=== PATIENT | female | born 1980 | race Caucasian/White ===

== ENCOUNTER → 2018-10-02 | Outpatient (CLI) | payer BC ==
--- NOTE | 2018-10-02 14:46 | US ---
EXAMINATION TYPE: US gallbladder DATE OF EXAM: 10/02/2018 COMPARISON: NONE CLINICAL HISTORY: R10.10 upper Abd pain. Pt states on/off ABD pain and pressure that has gotten worse in the last 2 months EXAM MEASUREMENTS: Liver Length: 14.2 cm Gallbladder Wall: 0.2 cm CBD: 0.3 cm Right Kidney: 6.6 x 3.1 x 3.3 cm Pancreas: Obscured by bowel gas Liver: wnl Gallbladder: Anterior wall at fundus shows possible adenomyomatosis Evidence for sonographic Bucio's sign: No CBD: wnl Right Kidney: Atrophic, pt has renal transplant IMPRESSION: 1. 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 Otherwise unremarkable study. 2. Atrophic right kidney.
== END | disposition home or self-care (01) ==
LOC: RADUSWWP 13:59
PROVIDERS: ATTEND Internal Medicine Gastroenterology
DX: N26.1 Atrophy of kidney (terminal) (principal)
CPT/HCPCS: 76705

== ENCOUNTER 2019-04-13 14:31 | Emergency (ER) | payer BC ==
[2019-04-13 15:13] VITALS: RESP 16; TEMP 98.5
[2019-04-13 16:11] LABS: Basophils % (A) 0 %; Eosinophils # (A) 0.1 k/uL (0-0.7); Eosinophils % (A) 1 %; HCT 38.5 % (34.0-46.0); HGB 12.5 gm/dL (11.4-16.0); Lymphocytes # (A) 1.3 k/uL (1.0-4.8); Lymphocytes % (A) 16 %; MCH 27.5 pg (25.0-35.0); MCHC 32.6 g/dL (31.0-37.0); MCV 84.5 fL (80.0-100.0); Mean Platelet Volume 8.2; Monocytes # (A) 0.5 k/uL (0-1.0); Monocytes % (A) 6 %; Neutrophils # (A) 5.8 k/uL (1.3-7.7); Neutrophils % (A) 75 %; Platelet Count 183 k/uL (150-450); RBC 4.55 m/uL (3.80-5.40); RDW 13.3 % (11.5-15.5); WBC 7.7 k/uL (3.8-10.6)
[2019-04-13 16:17] LABS: Appearance,Urine Cloudy (Clear); Bilirubin,Urine Negative (Negative); Blood,Urine Large (Negative); Color,Urine Yellow; Glucose,Urine (UA) Negative (Negative); Ketones,Urine 1+ (Negative); Leukocyte Esterase,Urine Small (Negative); Mucus,Urine Rare /hpf; Nitrite,Urine Negative (Negative); Protein,Urine 2+ (Negative); RBC,Urine >182 /hpf (0-5); Specific Gravity,Urine 1.017 (1.001-1.035); Squamous Epithelial Cell,Urine 2 /hpf (0-4); Urobilinogen,Urine <2.0 mg/dL (<2.0); WBC,Urine 10 /hpf (0-5)
[2019-04-13 16:22] LABS: Albumin 4.3 g/dL (3.5-5.0); Calcium 9.2 mg/dL (8.4-10.2); Total Bilirubin 0.5 mg/dL (0.2-1.3); Total Protein 7.4 g/dL (6.3-8.2)
[2019-04-13 17:55] LABS: Amorphous Sediment,Urine Occasional /hpf; Appearance,Urine Clear (Clear); Bilirubin,Urine Negative (Negative); Blood,Urine Trace (Negative); Color,Urine Yellow; Glucose,Urine (UA) Negative (Negative); Ketones,Urine 1+ (Negative); Leukocyte Esterase,Urine Negative (Negative); Mucus,Urine Rare /hpf; Nitrite,Urine Negative (Negative); Protein,Urine 2+ (Negative); Specific Gravity,Urine 1.019 (1.001-1.035); Squamous Epithelial Cell,Urine <1 /hpf (0-4); Urobilinogen,Urine <2.0 mg/dL (<2.0)
--- NOTE | 2019-04-13 18:52 | US ---
EXAMINATION TYPE: US kidneys/renal and bladder DATE OF EXAM: 04/13/2019 COMPARISON: US 2018 CLINICAL HISTORY: US transplanted kidney. Right flank pain, N/V, patient has transplant kidney. EXAM MEASUREMENTS: Right Kidney: 6.5 x 3.6 x 3.4 cm Left Kidney: 7.1 x 3.6 x 3.3 cm Transplant Kidney: 11.2 x 4.3 x 5.9cm Right Kidney: atrophic Left Kidney: atrophic Transplant Kidney: right pelvis, no hydronephrosis or masses seen Bladder: wnl Bilateral Jets seen: no IMPRESSION: Negative kidneys are atrophic. No evidence of renal obstruction. Transplant kidney unremarkable.
[2019-04-13] MEDS ORDERED: ACETAMINOPHEN TAB 325 MG TAB PO STA (19:07)
--- NOTE | 2019-04-13 19:31 | ED ---
Female Urogenital HPI - General Chief complaint: Urogenital Stated complaint: Female Time Seen by Provider: 04/13/19 15:14 Source: patient Mode of arrival: ambulatory Limitations: no limitations - History of Present Illness Initial comments: 39-year-old female with history of kidney transplant 3.5 years ago on tacrolimus and CellCept, hypertension on metoprolol ER presenting for chief complaint of vaginal bleeding. Patient states she is history of dysfunctional uterine bleeding. She states she has had previous ablations and D&Cs. She states that since her transplant she has had increased vaginal bleeding or post to prior she did not have periods. Patient states that her bleeding has been heavy for the past 2-3 days. Patient was concerned because she's needed a transfusion in the past due to heavy vaginal bleeding. Patient states she has mild low back pain and cramping in the mid abdominal region. Patient denies dysuria urgency frequ ency. Patient denies any chest pain shortness of breath. Patient states she did have one episode of vomiting. She is not sure if this is associated. Remaining review of systems negative, Patient denies any recent fever, chills, shortness of breath, chest pain, numbness or tingling, constipation or diarrhea, headaches or visual changes, or any other complaints. Last Menstrual Period: 04/11/19 - Related Data Allergies Allergy/AdvReac Type Severity Reaction Status Date / Time morphine AdvReac Vomiting Verified 04/13/19 15:13 Review of Systems ROS Statement: Those systems with pertinent positive or pertinent negative responses have been documented in the HPI. ROS Other: All systems not noted in ROS Statement are negative. Past Medical History Past Medical History: Deep Vein Thrombosis (DVT), Hypertension (on Metoprolol ER BID) Additional Past Medical History / Comment(s): kidney disease History of Any Multi-Drug Resistant Organisms: None Reported Additional Past Surgical History / Comment(s): kidney transplant, urter reimplantation Past Psychological History: No Psychological Hx Reported Smoking Status: Never smoker Past Alcohol Use History: None Reported Past Drug Use History: None Reported General Exam - General Exam Comments Initial Comments: General: The patient is awake and alert, in no distress, and does not appear acutely ill. Eye: +3 mm pupils are equal, round and reactive to light, extra-ocular movements are intact. No nystagmus. There is normal conjunctiva bilaterally. No signs of icterus. Ears, nose, mouth and throat: There are moist mucous membranes and no oral lesions. Neck: The neck is supple, there is no tenderness or JVD. Cardiovascular: There is a regular rate and rhythm. No murmur, rub or gallop is appreciated. Respiratory: Lungs are clear to auscultation, respirations are non-labored, breath sounds are equal. No wheezes, stridor, rales, or rhonchi. Gastrointestinal: Soft, non-distended, non-tender abdomen without masses or organomegaly noted. There is no rebound or guarding present. No CVA tenderness. Bowel sounds are unremarkable. Pelvic: Pain goal rugated vaginal mucosa. Small amount of dark red blood in vaginal vault. No heavy active bleeding. No adnexal or cervical motion tendernesson bimanual examination. No external or internal lesions. Musculoskeletal: Normal ROM, no tenderness. Strength 5/5. Sensation intact. Radial pulses equal bilaterally 2+. Neurological: A&O x 3. CN II-XII intact, There are no obvious motor or sensory deficits. Coordination appears grossly intact. Speech is normal. Skin: Skin is warm and dry and no rashes or lesions are noted. Psychiatric: Cooperative, appropriate mood & affect, normal judgment. Limitations: no limitations Course Vital Signs 04/13/19 04/13/19 04/13/19 15:10 19:15 19:39 Temperature 98.5 F Pulse Rate 100 74 Respiratory 16 16 Rate Blood Pressure 133/89 151/100 152/98 O2 Sat by Pulse 99 98 Oximetry 04/13/19 20:21 Temperature Pulse Rate 78 Respiratory 16 Rate Blood Pressure 152/98 O2 Sat by Pulse Oximetry Medical Decision Making - Medical Decision Making Well-appearing 39-year-old female presenting for heavy vaginal bleeding. There is small amount of blood in the vaginal vault on examination. No evidence of large clots or heavy bleeding. Patient has no adnexal or cervical motion tenderness. Hemoglobin stable. Heart rate WNL, no evidence of compensation, no pallor of mucous membranes patient denies SOB, or palpitations/heart racing. Patient isin pain on abdominal examination. Urinalysis was contaminated with vaginal blood. Straight catheterization was performed given patient's transpl ant status. No evidence of infection. Patient states her creatinine baseline is between 1.1-1.2. She states that she always has protein in her urine. No previous laboratory studies for comparison. US of the kidney transplant reveals no abnormalities. I discussed case at length in detail with Dr. Hill including PMH and recent transplant. He reviewed imaging studies and labs. At this time we feel comfortable discharging patient with repeat hemoglobin with primary care provider and follow up with the patient's RUBBER WASHER. Patient is agreeable care plan as well as discharge. She states that she follows up with her automotive project engineer closely and has standing order for any lab she needs--stating she will obtain repeat tomorrow. Return parameters were discussed at length patient verbalizes understanding. Patient blood pressure elevated upon discharge she states she'll take her metoprolol when she gets home. - Lab Data Result diagrams: 04/13/19 16:01 04/13/19 16:01 Lab Results 04/13/19 04/13/19 04/13/19 Range/Units 15:56 15:56 16:01 WBC 7.7 (3.8-10.6) k/uL RBC 4.55 (3.80-5.40) m/uL Hgb 12.5 (11.4-16.0) gm/dL Hct 38.5 (34.0-46.0) % MCV 84.5 (80.0-100.0) fL MCH 27.5 (25.0-35.0) pg MCHC 32.6 (31.0-37.0) g/dL RDW 13.3 (11.5-15.5) % Plt Count 183 (150-450) k/uL Neutrophils % 75 % Lymphocytes % 16 % Monocytes % 6 % Eosinophils % 1 % Basophils % 0 % Neutrophils # 5.8 (1.3-7.7) k/uL Lymphocytes # 1.3 (1.0-4.8) k/uL Monocytes # 0.5 (0-1.0) k/uL Eosinophils # 0.1 (0-0.7) k/uL Basophils # 0.0 (0-0.2) k/uL Sodium (137-145) mmol/L Potassium (3.5-5.1) mmol/L Chloride (98-107) mmol/L Carbon Dioxide (22-30) mmol/L Anion Gap mmol/L BUN (7-17) mg/dL Creatinine (0.52-1.04) mg/dL Est GFR (CKD-EPI)AfAm (>60 ml/min/1.73 sqM) Est GFR (CKD-EPI)NonAf (>60 ml/min/1.73 sqM) Glucose (74-99) mg/dL Calcium (8.4-10.2) mg/dL Total Bilirubin (0.2-1.3) mg/dL AST (14-36) U/L ALT (9-52) U/L Alkaline Phosphatase (38-126) U/L Total Protein (6.3-8.2) g/dL Albumin (3.5-5.0) g/dL Urine Color Yellow Urine Appearance Cloudy H (Clear) Urine pH 6.0 (5.0-8.0) Ur Specific [place] 1.017 (1.001-1.035) Urine Protein 2+ H (Negative) Urine Glucose (UA) Negative (Negative) Urine Ketones 1+ H (Negative) Urine Blood Large H (Negative) Urine Nitrite Negative (Negative) Urine Bilirubin Negative (Negative) Urine Urobilinogen <2.0 (<2.0) mg/dL Ur Leukocyte Esterase Small H (Negative) Urine RBC >182 H (0-5) /hpf Urine WBC 10 H (0-5) /hpf Ur Squamous Epith Cells 2 (0-4) /hpf Amorphous Sediment (None) /hpf Urine Mucus Rare H (None) /hpf Urine HCG, Qual Not Detected (Not Detectd) 04/13/19 04/13/19 Range/Units 16:01 17:30 WBC (3.8-10.6) k/uL RBC (3.80-5.40) m/uL Hgb (11.4-16.0) gm/dL Hct (34.0-46.0) % MCV (80.0-100.0) fL MCH (25.0-35.0) pg MCHC (31.0-37.0) g/dL RDW (11.5-15.5) % Plt Count (150-450) k/uL Neutrophils % % Lymphocytes % % Monocytes % % Eosinophils % % Basophils % % Neutrophils # (1.3-7.7) k/uL Lymphocytes # (1.0-4.8) k/uL Monocytes # (0-1.0) k/uL Eosinophils # (0-0.7) k/uL Basophils # (0-0.2) k/uL Sodium 140 (137-145) mmol/L Potassium 4.0 (3.5-5.1) mmol/L Chloride 108 H (98-107) mmol/L Carbon Dioxide 23 (22-30) mmol/L Anion Gap 9 mmol/L BUN 16 (7-17) mg/dL Creatinine 1.20 H (0.52-1.04) mg/dL Est GFR (CKD-EPI)AfAm 66 (>60 ml/min/1.73 sqM) Est GFR (CKD-EPI)NonAf 58 (>60 ml/min/1.73 sqM) Glucose 112 H (74-99) mg/dL Calcium 9.2 (8.4-10.2) mg/dL Total Bilirubin 0.5 (0.2-1.3) mg/dL AST 19 (14-36) U/L ALT 16 (9-52) U/L Alkaline Phosphatase 72 (38-126) U/L Total Protein 7.4 (6.3-8.2) g/dL Albumin 4.3 (3.5-5.0) g/dL Urine Color Yellow Urine Appearance Clear (Clear) Urine pH 6.0 (5.0-8.0) Ur Specific [place] 1.019 (1.001-1.035) Urine Protein 2+ H (Negative) Urine Glucose (UA) Negative (Negative) Urine Ketones 1+ H (Negative) Urine Blood Trace H (Negative) Urine Nitrite Negative (Negative) Urine Bilirubin Negative (Negative) Urine Urobilinogen <2.0 (<2.0) mg/dL Ur Leukocyte Esterase Negative (Negative) Urine RBC (0-5) /hpf Urine WBC 3 (0-5) /hpf Ur Squamous Epith Cells <1 (0-4) /hpf Amorphous Sediment Occasional H (None) /hpf Urine Mucus Rare H (None) /hpf Urine HCG, Qual (Not Detectd) Disposition Clinical Impression: Vaginal bleeding, Bilateral lower abdominal cramping Disposition: HOME SELF-CARE Condition: Good Instructions (If sedation given, give patient instructions): Dysfunctional Uterine Bleeding (ED) Additional Instructions: Please use medication as discussed. Please follow-up with family doctor in the next 2 days, automotive project engineer and OBGYN. Please return to emergency room if the symptoms increase or worsen or for any other concerns. Is patient prescribed a controlled substance at d/c from ED?: No Referrals: Jesus Godinez MD [Primary Care Provider] - 1-2 days Time of Disposition: 19:31
[2019-04-13 19:40] VITALS: BP 152/98
[2019-04-13 20:21] VITALS: PULSE 78
== END 2019-04-13 20:22 | disposition home or self-care (01) ==
LOC: EC 14:31
DX: N93.9 Abnormal uterine and vaginal bleeding, unspecified (principal); R10.31 Right lower quadrant pain; R10.32 Left lower quadrant pain; M54.5 Low back pain; R11.10 Vomiting, unspecified; Z94.0 Kidney transplant status; Z96.0 Presence of urogenital implants; Z88.5 Allergy status to narcotic agent
CPT/HCPCS: 36415; 76770; 80053; 81001; 81025; 85025; 99284

== ENCOUNTER → 2020-09-17 | Outpatient (CLI) | payer BC ==
--- NOTE | 2020-09-17 13:56 | XR ---
EXAMINATION TYPE: XR chest 2V DATE OF EXAM: 09/17/2020 COMPARISON: NONE TECHNIQUE: PA and lateral views submitted. HISTORY: Pain FINDINGS: The lungs are clear and there is no pneumothorax, pleural effusion, or focal pneumonia. Heart size normal. No overt failure. IMPRESSION: 1. No acute process.
--- NOTE | 2020-09-17 18:36 | BD ---
EXAMINATION TYPE: Axial Bone Density DATE OF EXAM: 09/17/2020 COMPARISON: NONE CLINICAL HISTORY: 40 YR OLD FEMALE.....ICD-10 CODE: N18.3 CHRONIC KIDNEY DISEASE, N92.6 IRREG. M ENSTRUATION, R07.81 PLEURODYNIA, Height: 61 Weight: 185 FRAX RISK QUESTIONS: NOTHING TO NOTE HERE RISK FACTORS HISTORY OF: Postmenopausal woman: NO, IRREG. LMP NOW If Premenopausal, do you have irregular periods: YES Poor Health: RENAL TRANSPLANT PT, Hyperparathyroidism: NO Adrenal Insufficiency: NO MEDICATIONS: Additional Medications: MYFORTIC, PROGRAPH, (ANTI-REJECT MEDS), BP MEDS, REFLUX MEDS, VIT D, FOLIC AC ID, TYLENOL, AND PM Additional History: KIDNEY DISEASE STAGE 3, TRANSPLANT PATIENT, PLEURODYNIA, IRREG. CYCLES, EXAM MEASUREMENTS: Bone mineral densitometry was performed using the [employer] System. Bone mineral density as measured about the Lumbar spine is: ----- L1-L4(G/cm2): 1.564 T Score Values are as follows: ----- L1: 2.9 ----- L2: 3.1 ----- L3: 3.8 ----- L4: 2.9 ----- L1-L4: 3.2 Bone mineral density FIRST BONE DENSITY STUDY Bone mineral density about the R hip (g/cm2): 1.227 Bone mineral density about the L hip (g/cm2): 1.209 T Score values are as follows: -----R Neck: 0.9 -----L Neck: 0.6 -----R Total: 1.7 -----L Total: 1.6 Bone mineral density BASELINE STUDY FRAX%s: NO FRAX DONE AGE NOT WITHIN FRAX RANGE IMPRESSION: Due to patient's age, Z score values are utilized. Normal (Values between +1 and -1 indicate normal bone mass). Consider repeating this study in 5 year s or sooner if there is some new clinical indication. NOTE: T-SCORE=SD OF THE YOUNG ADULT MEAN.
== END | disposition home or self-care (01) ==
LOC: RADBDWWP 13:06
PROVIDERS: ATTEND Pediatrics
DX: N92.6 Irregular menstruation, unspecified (principal); R07.81 Pleurodynia; N18.30 Chronic kidney disease, stage 3 unspecified
CPT/HCPCS: 71046; 77080

== ENCOUNTER → 2020-10-28 | Outpatient (CLI) | payer BC ==
--- NOTE | 2020-11-02 10:10 | MM ---
Reason for exam: screening (asymptomatic). History: Patient is nulliparous. Took hormonal contraceptives beginning at age 17. Physical Findings: A clinical breast exam by your physician is recommended on an annual basis and results should be correlated with mammographic findings. MG 3D Screening Mammo W/Cad Bilateral CC and MLO view(s) were taken. The breast tissue is heterogeneously dense. This may lower the sensitivity of mammography. A couple asymmetric densities central left MLO view have no clear correlate on CC view and incompletely disperse on 3D images. This may represent superior imposition shadow but further evaluation is recommended. ASSESSMENT: Incomplete: need additional imaging evaluation, BI-RAD 0 RECOMMENDATION: Special view mammogram of the left breast. (3D) If lesion persists on supplemental views, image directed ultrasound is recommended. [facility] will attempt to contact patient to return for supplemental views and ultrasound if indicated.
== END | disposition home or self-care (01) ==
LOC: RADMAMWWP 09:51
PROVIDERS: ATTEND Obstetrics & Gynecology
DX: Z12.31 Encounter for screening mammogram for malignant neoplasm of breast (principal)
CPT/HCPCS: 77063; 77067

== ENCOUNTER → 2020-11-09 | Outpatient (CLI) | payer BC ==
--- NOTE | 2020-11-10 09:55 | MM ---
Reason for exam: additional evaluation requested from abnormal screening. Last mammogram was performed less than 1 month ago. History: Patient is nulliparous. Took hormonal contraceptives beginning at age 17. Taking antineoplastic for 5 years 3 months. Taking other hormone for 5 years 3 months. Physical Findings: Nurse Summary: 3cm nodule in the right breast at 10 o'clock (nurse db). MG 3D Work Up W/Cad LT LM and spot compression MLO view(s) were taken of the left breast. Prior study comparison: October 28, 2020, bilateral MG 3d screening mammo w/cad. The breast tissue is heterogeneously dense. This may lower the sensitivity of mammography. There is no discrete abnormality left upper MLO posterior. No significant new findings when compared with previous films. These results were verbally communicated with the patient and result sheet given to the patient on 11/09/20. ASSESSMENT: Probably benign, BI-RAD 3 RECOMMENDATION: Follow-up diagnostic mammogram of the left breast in 6 months. Manage on a clinical basis with regard to palpable abnormality right breast, patient reports increased lipoma.
== END | disposition home or self-care (01) ==
LOC: RADMAMWWP 14:02
PROVIDERS: ATTEND Obstetrics & Gynecology
DX: R92.8 Other abnormal and inconclusive findings on diagnostic imaging of breast (principal)
CPT/HCPCS: 77061; 77065

== ENCOUNTER → 2021-06-24 | Outpatient (CLI) | payer BC ==
--- NOTE | 2021-06-24 11:51 | MM ---
Reason for exam: follow-up at short interval from prior study. Last mammogram was performed 7 months ago. History: Patient is nulliparous. Taking hormonal contraceptives beginning at age 17. Taking antineoplastic for 5 years 3 months. Taking other hormone for 5 years 3 months. Physical Findings: Nurse Summary: 3cm nodule in the right breast at 10-11 o'clock (nurse daphne). MG 3D Diag Mammo W/Cad LT CC and MLO view(s) were taken of the left breast. Prior study comparison: October 28, 2020, bilateral MG 3d screening mammo w/cad. The breast tissue is heterogeneously dense. This may lower the sensitivity of mammography. There is no discrete abnormality. These results were verbally communicated with the patient and result sheet given to the patient on 06/24/21. ASSESSMENT: Negative, BI-RAD 1 RECOMMENDATION: Return to routine screening mammogram schedule for both breasts. Back on schedule.
== END | disposition home or self-care (01) ==
LOC: RADMAMWWP 11:04
PROVIDERS: ATTEND Obstetrics & Gynecology
DX: R92.8 Other abnormal and inconclusive findings on diagnostic imaging of breast (principal)
CPT/HCPCS: 77061; 77065

== ENCOUNTER 2024-07-14 02:46 | Observation (INO) | payer BC ==
--- NOTE | 2024-07-14 03:22 | ED ---
Neuro HPI - General Chief Complaint: Neuro Symptoms/Deficit Stated Complaint: Neuro symptoms Time Seen by Provider: 07/14/24 02:54 Source: patient, family, RN notes reviewed, old records reviewed Mode of arrival: wheelchair Limitations: no limitations - History of Present Illness Is the patient presenting with stroke symptoms?: No -: days(s) Initial Comments: This is a 44-year-old female who does suffer from high blood pressure coming in for evaluation today of elevated blood pressure some anxiety inability to really communicate how she is feeling but she feels like her body is moving uncontrollably although visibly she is having no movement at all. She feels that she is having some numbness and tingling in her left arm and is very anxious, patient is concerned over her overall general health. After some time patient does admit to going on a girls vacation this and doing marijuana Location: speech, left arm History of same: No Place: home Severity: mild Quality: numb, tingling Context: gradual onset Associated Symptoms: confusion, weakness - Related Data Home Medications: Home Medications Medication Instructions Recorded Confirmed Apixaban [Eliquis] 2.5 mg PO BID 07/14/24 07/14/24 Atorvastatin [Lipitor] 20 mg PO HS 07/14/24 07/14/24 Folic Acid 1 mg PO DAILY 07/14/24 07/14/24 Magnesium 100 mg PO DAILY 07/14/24 07/14/24 Metoprolol Succinate (ER) [Toprol 25 mg PO BID 07/14/24 07/14/24 XL] Mycophenolate Sodium [Mycophenolic 360 mg PO Q12H 07/14/24 07/14/24 Acid] Omeprazole [PriLOSEC] 20 mg PO AC-BRKFST 07/14/24 07/14/24 Tacrolimus [Prograf] 0.5 mg PO HS 07/14/24 07/14/24 Tacrolimus [Prograf] 1 mg PO Q12H 07/14/24 07/14/24 Vitamin D3 (Unknown Dose) 4,000 unit PO DAILY 07/14/24 07/14/24 lisinopriL [Zestril] 5 mg PO DAILY 07/14/24 07/14/24 Previous Rx's Medication Instructions Recorded Cyanocobalamin [Vitamin B-12] 1,000 mcg PO MOWEFR #30 tab 07/16/24 Allergies/Adverse Reactions: Allergies Allergy/AdvReac Type Severity Reaction Status Date / Time morphine AdvReac Vomiting Verified 07/14/24 06:42 Review of Systems ROS Statement: Those systems with pertinent positive or pertinent negative responses have been documented in the HPI. ROS Other: All systems not noted in ROS Statement are negative. General Exam Limitations: no limitations General appearance: alert, in no apparent distress, anxious Head exam: Present: atraumatic, normocephalic, normal inspection Eye exam: Present: normal appearance, PERRL, EOMI. Absent: scleral icterus, conjunctival injection, periorbital swelling ENT exam: Present: normal exam, mucous membranes moist Neck exam: Present: normal inspection. Absent: tenderness, meningismus, lymphadenopathy Respiratory exam: Present: normal lung sounds bilaterally. Absent: respiratory distress, wheezes, rales, rhonchi, stridor Cardiovascular Exam: Present: normal rhythm, tachycardia, normal heart sounds. Absent: systolic murmur, diastolic murmur, rubs, gallop, clicks GI/Abdominal exam: Present: soft, normal bowel sounds. Absent: distended, tenderness, guarding, rebound, rigid Extremities exam: Present: normal inspection, full ROM, normal capillary refill. Absent: tenderness, pedal edema, joint swelling, calf tenderness Back exam: Present: normal inspection Neurological exam: Present: alert, oriented X3, CN II-XII intact Psychiatric exam: Present: normal affect, normal mood Skin exam: Present: warm, dry, intact, normal color. Absent: rash Stroke MDM - Lab Data Result diagrams: 07/15/24 02:31 07/15/24 02:31 Lab Results 07/14/24 07/14/24 07/14/24 Range/Units 03:23 03:23 03:23 WBC 10.1 (3.8-10.6) k/uL RBC 4.69 (3.80-5.40) m/uL Hgb 13.7 (11.4-16.0) gm/dL Hct 40.9 (34.0-46.0) % MCV 87.3 (80.0-100.0) fL MCH 29.1 (25.0-35.0) pg MCHC 33.4 (31.0-37.0) g/dL RDW 13.4 (11.5-15.5) % Plt Count 194 (150-450) k/uL MPV 9.9 Neutrophils % 72 % Lymphocytes % 19 % Monocytes % 5 % Eosinophils % 1 % Basophils % 0 % Neutrophils # 7.3 (1.3-7.7) k/uL Lymphocytes # 1.9 (1.0-4.8) k/uL Monocytes # 0.5 (0-1.0) k/uL Eosinophils # 0.1 (0-0.7) k/uL Basophils # 0.0 (0-0.2) k/uL PT 10.6 (10.0-12.5) sec INR 1.0 (<1.2) APTT 24.6 (22.0-30.0) sec Sodium 141 (137-145) mmol/L Potassium 4.3 (3.5-5.1) mmol/L Chloride 109 H (98-107) mmol/L Carbon Dioxide 21 L (22-30) mmol/L Anion Gap 11 mmol/L BUN 13 (7-17) mg/dL Creatinine 1.26 H (0.52-1.04) mg/dL Est GFR (CKD-EPI)AfAm 60 (>60 ml/min/1.73 sqM) Est GFR (CKD-EPI)NonAf 52 (>60 ml/min/1.73 sqM) Glucose 130 H (74-99) mg/dL Calcium 9.6 (8.4-10.2) mg/dL Total Bilirubin 0.7 (0.2-1.3) mg/dL AST 21 (14-36) U/L ALT 14 (4-34) U/L Alkaline Phosphatase 70 (38-126) U/L Creatine Kinase 81 (30-135) U/L Troponin I (0.000-0.034) ng/mL Total Protein 7.5 (6.3-8.2) g/dL Albumin 4.4 (3.5-5.0) g/dL 07/14/24 Range/Units 03:23 WBC (3.8-10.6) k/uL RBC (3.80-5.40) m/uL Hgb (11.4-16.0) gm/dL Hct (34.0-46.0) % MCV (80.0-100.0) fL MCH (25.0-35.0) pg MCHC (31.0-37.0) g/dL RDW (11.5-15.5) % Plt Count (150-450) k/uL MPV Neutrophils % % Lymphocytes % % Monocytes % % Eosinophils % % Basophils % % Neutrophils # (1.3-7.7) k/uL Lymphocytes # (1.0-4.8) k/uL Monocytes # (0-1.0) k/uL Eosinophils # (0-0.7) k/uL Basophils # (0-0.2) k/uL PT (10.0-12.5) sec INR (<1.2) APTT (22.0-30.0) sec Sodium (137-145) mmol/L Potassium (3.5-5.1) mmol/L Chloride (98-107) mmol/L Carbon Dioxide (22-30) mmol/L Anion Gap mmol/L BUN (7-17) mg/dL Creatinine (0.52-1.04) mg/dL Est GFR (CKD-EPI)AfAm (>60 ml/min/1.73 sqM) Est GFR (CKD-EPI)NonAf (>60 ml/min/1.73 sqM) Glucose (74-99) mg/dL Calcium (8.4-10.2) mg/dL Total Bilirubin (0.2-1.3) mg/dL AST (14-36) U/L ALT (4-34) U/L Alkaline Phosphatase (38-126) U/L Creatine Kinase (30-135) U/L Troponin I <0.012 (0.000-0.034) ng/mL Total Protein (6.3-8.2) g/dL Albumin (3.5-5.0) g/dL - NIH Stroke Scale 1a. Level of Consciousness: (0) alert 1b. LOC Questions: (0) answers correctly 1c. LOC Commands: (0) performs tasks correctly 2. Best Gaze: (0) normal 3. Visual: (0) no visual loss 4. Facial Palsy: (0) normal symmetrical movement 5a. Motor Arm Left: (0) no drift 5b. Motor Arm Right: (0) no drift 6a. Motor Leg Left: (0) no drift 6b. Motor Leg Right: (0) no drift 7. Limb Ataxia: (0) absent 8. Sensory: (0) normal 9. Best Language: (0) no aphasia 10. Dysarthria: (0) normal 11. Extinction/Inattention: (0) no abnormality - Thrombolytic Inclusion/Exclusion Thrombolytic Exclusion Criteria: Symptom Onset > 4.5 Hours - Medical Decision Making 44 female to the ER today for evaluation of left arm numbness tingling, initially elevated blood pressure although dramatically improved with treatment. Patient has normal findings on CT scan and the labs and can be admitted for observation she complains of being uncomfortable w discharge - Radiology Data Radiology results: report reviewed (CT brain is negative for acute disease), image reviewed - EKG Data -: EKG Interpreted by Me (EKG is sinus 96 NC 139 QRS 88 QTc 383) Past Medical History Past Medical History: Deep Vein Thrombosis (DVT), Hypertension Additional Past Medical History / Comment(s): kidney disease History of Any Multi-Drug Resistant Organisms: None Reported Additional Past Surgical History / Comment(s): kidney transplant, urter reimplantation at age 12 Past Psychological History: No Psychological Hx Reported Smoking Status: Never smoker Past Alcohol Use History: None Reported Past Drug Use History: Marijuana Course Vital Signs 07/14/24 07/14/24 07/14/24 02:46 03:36 04:48 Temperature 98.0 F Pulse Rate 117 H 101 H 82 Pulse Rate [ Pulse Oximetery ] Respiratory 20 16 16 Rate Blood Pressure 165/120 147/99 134/85 Blood Pressure [Right Arm] O2 Sat by Pulse 99 99 98 Oximetry 07/14/24 07/14/24 07/14/24 05:54 07:28 08:02 Temperature 98.1 F Pulse Rate 71 91 84 Pulse Rate [ Pulse Oximetery ] Respiratory 16 16 18 Rate Blood Pressure 130/86 138/93 140/92 Blood Pressure [Right Arm] O2 Sat by Pulse 98 98 98 Oximetry 07/14/24 07/14/24 07/14/24 09:15 10:11 11:01 Temperature Pulse Rate 86 85 84 Pulse Rate [ Pulse Oximetery ] Respiratory 17 16 16 Rate Blood Pressure 132/88 130/92 138/93 Blood Pressure [Right Arm] O2 Sat by Pulse 98 98 99 Oximetry 07/14/24 07/14/24 07/14/24 12:14 13:04 14:12 Temperature 98.7 F Pulse Rate 82 79 82 Pulse Rate [ Pulse Oximetery ] Respiratory 16 16 14 Rate Blood Pressure 145/86 140/89 144/97 Blood Pressure [Right Arm] O2 Sat by Pulse 96 95 100 Oximetry 07/14/24 07/14/24 15:00 15:19 Temperature 98.2 F 98.6 F Pulse Rate 86 Pulse Rate [ 82 Pulse Oximetery ] Respiratory 16 16 Rate Blood Pressure 136/92 Blood Pressure 147/92 [Right Arm] O2 Sat by Pulse 100 98 Oximetry - Reevaluation(s) Reevaluation #1: 07/14/24 05:02 Records reviewed Reevaluation #2: 07/14/24 05:02 Symptoms unchanged Reevaluation #3: 07/14/24 05:02 Patient informed of results and questions answered Reevaluation #4: 07/14/24 06:57 Was pt. sent in by a medical professional or institution ([employer] Espino, BUSINESS MAIL ENTRY CLERK, urgent care, hospital, or senior care...) When possible be specific @ -no Did you speak to anyone other than the patient for history (EMS, parent, family, police, friend...)? What history was obtained from this source @ -no Did you review nursing and triage notes (agree or disagree)? Why? @ -agree Are old charts reviewed (outside hosp., previous admission, EMS record, old EKG, old radiological studies, urgent care reports/EKG's, senior care records)? Report findings @ -yes Differential Diagnosis (chest pain, altered mental status, abdominal pain women, abdominal pain men, vaginal bleeding, weakness, fever, dyspnea, syncope, headache, dizziness, GI bleed, back pain, seizure, CVA, palpatations, mental health, musculoskeletal)? @ -prior EKG interpreted by me (3pts min.). @ -yes X-rays interpreted by me (1pt min.). @ -no CT interpreted by me (1pt min.). @ -Yes negative for acute disease U/S interpreted by me (1pt. min.). @ -no What testing was considered but not performed or refused? (CT, X-rays, U/S, labs)? Why? @ -none What meds were considered but not given or refused? Why? @ -none Did you discuss the management of the patient with other professionals (noreen oncarlota i.eTamara Espino, COSME, BUSINESS MAIL ENTRY CLERK, lab, RT, psych nurse, social work job titles, project manager interior design, teacher, juvenile officer, case manager specialist)? Give summary @ -no Was smoking cessation discussed for >3mins.? @ -no Was critical care preformed (if so, how long)? @ -no Were there social determinants of health that impacted care today? How? (Homelessness, low income, unemployed, alcoholism, drug addiction, transportation, low edu. Level, literacy, decrease access to med. care, retirement, rehab)? @ -none Was there de-escalation of care discussed even if they declined (Discuss DNR or withdrawal of care, Hospice)? DNR status @ -no What co-morbidities impacted this encounter? (DM, HTN, Smoking, COPD, CAD, Cancer, CVA, ARF, Chemo, Hep., AIDS, mental health diagnosis, sleep apnea, morbid obesity)? @ -none Was patient admitted / discharged? Hospital course, mention meds given and route, prescriptions, significant lab abnormalities, going to OR and other pertinent info. @ - 44 female to the ER today for evaluation of left arm numbness tingling, initially elevated blood pressure although dramatically improved with treatment. Patient has normal findings on CT scan and the labs and can be admitted for observation she complains of being uncomfortable w discharge Admitted e Undiagnosed new problem with uncertain prognosis? @ -no Drug Therapy requiring intensive monitoring for toxicity (Heparin, Nitro, Insulin, Cardizem)? @ -no Were any procedures done? @ -no Diagnosis/symptom? @ - weakness paresthesias hypertension Acute, or Chronic, or Acute on Chronic? @ -Acute Uncomplicated (without systemic symptoms) or Complicated (systemic symptoms)? @ -Complicated Side effects of treatment? @ -no Exacerbation, Progression, or Severe Exacerbation? @ -exacerbation Poses a threat to life or bodily function? How? (Chest pain, USA, CT, pneumonia, PE, COPD, DKA, ARF, appy, cholecystitis, CVA, Diverticulitis, Homicidal, Mag cidal, threat to staff... and all critical care pts) @ -yes with hypertension Reevaluation #5: Differential CVA Ischemic stroke, hemorrhagic stroke, brain tumor, atypical migraine, Wernicke's encephalopathy, seizure, multiple sclerosis, meningitis, encephalitis, hypogly cemia, Guillain-Thrasher, electrolytes disturbance, myasthenia gravis.... This is not meant to be an all-inclusive list - Consultations Consultation #1: Spoke with [facility] who agrees to admit this patient Disposition Clinical Impression: Paresthesia, Hypertension, Tachycardia, Anxiety Disposition: ADMITTED IP TO THIS HOSP Condition: Fair Is patient prescribed a controlled substance at d/c from ED?: No Time of Disposition: 05:00
[2024-07-14] MEDS: SODIUM CHLORIDE 0.9% 1,000 ML IV STA (03:35)
[2024-07-14] MEDS: LORazepam 2 MG/ML INJ IV STA (03:35)
[2024-07-14] MEDS: LABETALOL 5 MG/ML VIAL MDV IVP STA (03:43)
[2024-07-14 04:04] LABS: Basophils % (A) 0 %; Eosinophils # (A) 0.1 k/uL (0-0.7); Eosinophils % (A) 1 %; HCT 40.9 % (34.0-46.0); HGB 13.7 gm/dL (11.4-16.0); Lymphocytes # (A) 1.9 k/uL (1.0-4.8); Lymphocytes % (A) 19 %; MCH 29.1 pg (25.0-35.0); MCHC 33.4 g/dL (31.0-37.0); MCV 87.3 fL (80.0-100.0); Mean Platelet Volume 9.9; Monocytes # (A) 0.5 k/uL (0-1.0); Monocytes % (A) 5 %; Neutrophils # (A) 7.3 k/uL (1.3-7.7); Neutrophils % (A) 72 %; Platelet Count 194 k/uL (150-450); RBC 4.69 m/uL (3.80-5.40); RDW 13.4 % (11.5-15.5); WBC 10.1 k/uL (3.8-10.6)
[2024-07-14 04:08] LABS: ALT 14 U/L (4-34); AST 21 U/L (14-36); African American GFR (CKD) 60 (>60 ml/min/1.73 sqM); Albumin 4.4 g/dL (3.5-5.0); Alkaline Phosphatase 70 U/L (38-126); Anion Gap 11 mmol/L; Blood Urea Nitrogen 13 mg/dL (7-17); Calcium 9.6 mg/dL (8.4-10.2); Carbon Dioxide 21 mmol/L (22-30); Chloride 109 mmol/L (98-107); Creatine Kinase 81 U/L (30-135); Glucose 130 mg/dL (74-99); Non-African American GFR(CKD) 52 (>60 ml/min/1.73 sqM); Potassium 4.3 mmol/L (3.5-5.1); Sodium 141 mmol/L (137-145); Total Bilirubin 0.7 mg/dL (0.2-1.3); Total Protein 7.5 g/dL (6.3-8.2)
--- NOTE | 2024-07-14 04:47 | CT ---
EXAM: CT Head Without Intravenous Contrast CLINICAL HISTORY: ITS.REASON CT Reason: Neuro deficit, acute, stroke suspected TECHNIQUE: Axial computed tomography images of the head/brain without intravenous contrast. CTDI is 49.1 mGy and DLP is 1223 mGy-cm. This CT exam was performed using one or more of the following dose reduction techniques: automated exposure control, adjustment of the mA and/or kV according to patient size, and/or use of iterative reconstruction technique. COMPARISON: No relevant prior studies available. FINDINGS: Brain: No hemorrhage or mass effect. Ventricles: No hydrocephalus. Bones/joints: Unremarkable. Soft tissues: Unremarkable. Sinuses: No air fluid level. Mastoid air cells: Clear. IMPRESSION: No acute hemorrhage, hydrocephalus, or mass effect.
[2024-07-14 04:50] LABS: Partial Thromboplastin Time 24.6 sec (22.0-30.0); Prothrombin Time 10.6 sec (10.0-12.5)
[2024-07-14] MEDS ORDERED: NALOXONE 0.4 MG/ML 1 ML VIAL IV PRN (04:57)
[2024-07-14] MEDS ORDERED: LORazepam 1 MG TAB PO PRN (04:57)
[2024-07-14] MEDS ORDERED: HYDROmorphone 1 MG/ML 1 ML SYRINGE IVP PRN (04:57)
[2024-07-14] MEDS: SODIUM CHLORIDE 0.9% 1,000 ML IV SCH (06:00)
[2024-07-14] MEDS: FOLIC ACID 1 MG TAB PO SCH (10:51)
[2024-07-14] MEDS: MAGNESIUM OXIDE 400 MG TAB PO SCH (10:51)
[2024-07-14] MEDS: lisinopriL 5 MG TAB PO SCH (10:51)
[2024-07-14] MEDS: MYCOPHENOLATE SODIUM DR 180 MG TABLET.DR PO SCH (10:52)
[2024-07-14] MEDS: PANTOPRAZOLE 40 MG TABLET PO SCH (10:52)
[2024-07-14] MEDS: METOPROLOL SUCCINATE (ER) 25 MG TAB.ER.24H PO SCH (10:52)
[2024-07-14] MEDS: TACROLIMUS 0.5 MG CAP PO SCH (10:58)
[2024-07-14] MEDS: TACROLIMUS 1 MG CAP PO SCH (10:59)
[2024-07-14 11:20] LABS: African American GFR (CKD) 70 (>60 ml/min/1.73 sqM); Anion Gap 4 mmol/L; Blood Urea Nitrogen 11 mg/dL (7-17); Calcium 8.7 mg/dL (8.4-10.2); Carbon Dioxide 19 mmol/L (22-30); Chloride 112 mmol/L (98-107); Glucose 95 mg/dL (74-99); Magnesium 1.6 mg/dL (1.6-2.3); Non-African American GFR(CKD) 60 (>60 ml/min/1.73 sqM); Potassium 4.1 mmol/L (3.5-5.1); Sodium 135 mmol/L (137-145)
[2024-07-14] MEDS ORDERED: Magnesium Replacement Protocol 1 EACH MISC MISCELLANE PRN (14:20)
--- NOTE | 2024-07-14 14:21 | P.HPIM ---
History of Present Illness H&P Date: 07/14/24 This is a pleasant 44-year-old female with medical history of hypertension, DVT x 3 anticoagulated on Eliquis, kidney transplant. 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 She is denying any numbness or tingling in the left arm however she was very anxious that she has had 2 episodes and came in for further evaluation. Patient is found to have high blood pressure 160s over 120s on admission she was not having any shortness of breath chest palpitations dizziness lightheadedness or headache. She is not having any focal neurological deficits at this time. Patient does report smoking a marijuana joint the evening before the first episode happened. She denies any other recreational drug use. Is anticoagulated on Eliquis 2.5 mg twice a day follows with Dr. Molina for history of multiple DVTs. Patient's initial brain CT reveals no acute hemorrhage, hydrocephalus or mass effect. EKG reveals sinus rhythm with a heart rate of [address] or T wave abnormalities. Admission patient's BUN is 13 with a creatinine of 1.26, glucose of 130s her CBC is unremarkable. Troponin level is negative x 3. Her TSH is 1.650. A urine drug toxicology was not completed on admission. Neurology was also consulted patient is scheduled to for echocardiogram, EEG and MRI to undergo a full stroke workup. REVIEW OF SYSTEMS: CONSTITUTIONAL: No fever, no malaise, no fatigue. HEENT: No recent visual problems or hearing problems. Denied any sore throat. CARDIOVASCULAR: No chest pain, orthopnea, PND, no palpitations, no syncope. PULMONARY: No shortness of breath, no cough, no hemoptysis. GASTROINTESTINAL: No diarrhea, no nausea, no vomiting, no abdominal pain. NEUROLOGICAL: No headaches, no weakness, no numbness. HEMATOLOGICAL: Denies any bleeding or petechiae. GENITOURINARY: Denies any burning micturition, frequency, or urgency. MUSCULOSKELETAL/RHEUMATOLOGICAL: Denies any joint pain, swelling, or any muscle pain. ENDOCRINE: Denies any polyuria or polydipsia. The rest of the 14-point review of systems is negative. PHYSICAL EXAMINATION: GENERAL: The patient is alert and oriented x3, not in any acute distress. Well developed, well nourished. HEENT: Pupils are round and equally reacting to light. EOMI. No scleral icterus. No conjunctival pallor. Normocephalic, atraumatic. No pharyngeal erythema. No thyromegaly. CARDIOVASCULAR: S1 and S2 present. No murmurs, rubs, or gallops. PULMONARY: Chest is clear to auscultation, no wheezing or crackles. ABDOMEN: Soft, nontender, nondistended, normoactive bowel sounds. No palpable organomegaly. MUSCULOSKELETAL: No joint swelling or deformity. EXTREMITIES: No cyanosis, clubbing, or pedal edema. NEUROLOGICAL: Gross neurological examination did not reveal any focal deficits. SKIN: No rashes. Assessment and plan Paresthesias rule out TIA versus stroke neurology on consult patient is scheduled to undergo echocardiogram EEG and MRI. Could also be from the marijuana use. Left-sided chest pain,atypical with negative troponins likely due to the hypertension and anxiety and admission Un-Controlled hypertension on admission patient is maintained on lisinopril and metoprolol outpatient which have been resumed, blood pressure now controlled. History of kidney transplant maintained on mycophenolate and tacrolimus Hyperlipidemia maintained on atorvastatin which has been resumed History of DVT anticoagulated with Eliquis maintenance which has been resumed. Reported history of a clotting disorder per patient she follows with Dr. Molina patient is unclear what the name of the clotting disorder is Hypomagnesemia Marijuana use Prophylaxis DVT prophylaxis Full code Continue all same home medications Stroke workup has been ordered including echocardiogram EEG and MRI Neurology consultation Pending Lipid panel, hemoglobin A1C Continue normal saline Replace magnesium The impression and plan of care has been dictated by Hanh Newsome, Nurse Practitioner as directed. Dr. Henrry MD I have performed a history and physical examination and medical decision making of this patient, discussed the same with the dictator, and agree with the dictators assessment and plan as written, documented as a scribe. Based on total visit time, I have performed more than 50% of this visit. Past Medical History Past Medical History: Deep Vein Thrombosis (DVT), Hypertension Additional Past Medical History / Comment(s): kidney disease History of Any Multi-Drug Resistant Organisms: None Reported Additional Past Surgical History / Comment(s): kidney transplant, urter reimplantation at age 12 Past Psychological History: No Psychological Hx Reported Smoking Status: Never smoker Past Alcohol Use History: None Reported Past Drug Use History: Marijuana Medications and Allergies Home Medications Medication Instructions Recorded Confirmed Type Apixaban [Eliquis] 2.5 mg PO BID 07/14/24 07/14/24 History Atorvastatin [Lipitor] 20 mg PO HS 07/14/24 07/14/24 History Folic Acid 1 mg PO DAILY 07/14/24 07/14/24 History Magnesium 100 mg PO DAILY 07/14/24 07/14/24 History Metoprolol Succinate (ER) [Toprol 25 mg PO BID 07/14/24 07/14/24 History Xl] Mycophenolate Sodium [Mycophenolic 360 mg PO Q12H 07/14/24 07/14/24 History Acid] Omeprazole [PriLOSEC] 20 mg PO AC-BRKFST 07/14/24 07/14/24 History Tacrolimus [Prograf] 0.5 mg PO HS 07/14/24 07/14/24 History Tacrolimus [Prograf] 1 mg PO Q12H 07/14/24 07/14/24 History Vitamin D3 (Unknown Dose) 1 tab PO DAILY 07/14/24 07/14/24 History lisinopriL [Zestril] 5 mg PO DAILY 07/14/24 07/14/24 History Allergies Allergy/AdvReac Type Severity Reaction Status Date / Time morphine AdvReac Vomiting Verified 07/14/24 06:42 Physical Exam Vitals: Vital Signs Temp Pulse Resp BP Pulse Ox 07/14/24 13:04 79 16 140/89 95 07/14/24 12:14 82 16 145/86 96 07/14/24 11:01 84 16 138/93 99 07/14/24 10:11 85 16 130/92 98 07/14/24 09:15 86 17 132/88 98 07/14/24 08:02 98.1 F 84 18 140/92 98 07/14/24 07:28 91 16 138/93 98 07/14/24 05:54 71 16 130/86 98 07/14/24 04:48 82 16 134/85 98 07/14/24 03:36 101 H 16 147/99 99 07/14/24 02:46 98.0 F 117 H 20 165/120 99 Intake and Output 07/13/24 07/14/2407/14/24 22:59 06:59 14:59 Other: Weight 82.554 kg Results CBC & Chem 7: 07/14/24 03:23 07/14/24 10:39 Labs: Abnormal Lab Results - Last 24 Hours (Table) 07/14/24 07/14/24 Range/Units 03:23 10:39 Sodium 135 L (137-145) mmol/L Chloride 109 H 112 H (98-107) mmol/L Carbon Dioxide 21 L 19 L (22-30) mmol/L Creatinine 1.26 H 1.12 H (0.52-1.04) mg/dL Glucose 130 H (74-99) mg/dL Assessment and Plan Time with Patient: Less than 30
--- NOTE | 2024-07-14 15:13 | P.CNNES ---
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 Stated that she went with her friend up [place] and they were together and they smoked a joint and she stated that she has not done that in 20 years and then afterwards she felt she was having abnormal sensation as an her muscle she felt was abnormal as and it is coming in waves all her muscles and she felt mentally slow but she did not lose consciousness and she was oriented to the surrounding. She felt her tongue was twirling. Denies any uri nary incontinence bowel incontinence tongue bite denies any jerking of any extremities. She stated the episode lasted for 2-1/2 hours. Then she went and slept and then overnight she had another episode and she felt her finger toes were twitching and twirling. She denies any history of seizure or stroke in the past. The alcohol use or any other illicit drug use. Denies any fever any headache. Some of the workup during this hospital visit consisted of: CBC with differential is unremarkable Chemistry panel is glucose is 130 on presentation. Creatinine is 1.26 and repeat is 1.12. TSH is 1.650 Sodium, AST ALT, calcium are within normal limits CT head is reported as no acute hemorrhage, hydrocephalus or mass effect. I personally reviewed the CT and agree with the report. Review of Systems As per HPI. Past Medical History Past Medical History: Deep Vein Thrombosis (DVT), Hypertension Additional Past Medical History / Comment(s): kidney disease History of Any Multi-Drug Resistant Organisms: None Reported Additional Past Surgical History / Comment(s): kidney transplant, urter reimplantation at age 12 Past Psychological History: No Psychological Hx Reported Smoking Status: Never smoker Past Alcohol Use History: None Reported Past Drug Use History: Marijuana Medications and Allergies Home Medications Medication Instructions Recorded Confirmed Type Apixaban [Eliquis] 2.5 mg PO BID 07/14/24 07/14/24 History Atorvastatin [Lipitor] 20 mg PO HS 07/14/24 07/14/24 History Folic Acid 1 mg PO DAILY 07/14/24 07/14/24 History Magnesium 100 mg PO DAILY 07/14/24 07/14/24 History Metoprolol Succinate (ER) [Toprol 25 mg PO BID 07/14/24 07/14/24 History Xl] Mycophenolate Sodium [Mycophenolic 360 mg PO Q12H 07/14/24 07/14/24 History Acid] Omeprazole [PriLOSEC] 20 mg PO AC-BRKFST 07/14/24 07/14/24 History Tacrolimus [Prograf] 0.5 mg PO HS 07/14/24 07/14/24 History Tacrolimus [Prograf] 1 mg PO Q12H 07/14/24 07/14/24 History Vitamin D3 (Unknown Dose) 1 tab PO DAILY 07/14/24 07/14/24 History lisinopriL [Zestril] 5 mg PO DAILY 07/14/24 07/14/24 History Allergies Allergy/AdvReac Type Severity Reaction Status Date / Time morphine AdvReac Vomiting Verified 07/14/24 06:42 Physical Examination - Vital Signs Vital Signs: Vital Signs Temp Pulse Resp BP Pulse Ox 07/14/24 14:12 98.7 F 82 14 144/97 100 07/14/24 13:04 79 16 140/89 95 07/14/24 12:14 82 16 145/86 96 07/14/24 11:01 84 16 138/93 99 07/14/24 10:11 85 16 130/92 98 07/14/24 09:15 86 17 132/88 98 07/14/24 08:02 98.1 F 84 18 140/92 98 07/14/24 07:28 91 16 138/93 98 07/14/24 05:54 71 16 130/86 98 07/14/24 04:48 82 16 134/85 98 07/14/24 03:36 101 H 16 147/99 99 07/14/24 02:46 98.0 F 117 H 20 165/120 99 Intake and Output 07/14/24 07/14/24 07/14/24 06:59 14:59 22:59 Other: Weight 82.554 kg GENERAL: The patient is lying in bed and is not in acute distress. HENT: Supple neck. NEUROLOGICAL: Higher mental function: The patient is awake, alert, oriented to self, place and time. Patient is following commands. No aphasia and no neglect. Cranial nerves: The pupils are round, equal and reactive to light and accommodation. Visual abbott are full to confrontation throughout. Extraocular movement is intact no nystagmus is noted. Facial sensation is normal to touch throughout. The facial strength is normal throughout. Hearing is normal bilaterally to hand rub. Tongue is midline and moved [id number] without any difficulty. No dysarthria is noted. Shoulder shrug is normal bilaterally. Motor: The strength is 5 over 5 throughout. Normal tone and bulk. Cerebellum: Normal finger to nose heel to goncalves bilaterally. Sensation: Sensation is normal to touch throughout. Reflexes (right/left): 2+ throughout. Plantars are downgoing bilaterally. Results - Laboratory Findings CBC and BMP: 07/14/24 03:23 07/14/24 10:39 Abnormal Lab Findings: Abnormal Labs 07/14/24 07/14/24 03:23 10:39 Sodium 135 L Chloride 109 H 112 H Carbon Dioxide 21 L 19 L Creatinine 1.26 H 1.12 H Glucose 130 H Assessment and Plan Assessment: This is a 44-year-old woman who present emergency department because of confusion feeling she is having sensation of muscle waves with abnormal twitching of her muscle movement. She stated it started after she smoked a joint with her friend and she has not done so in 20 years. She denies loss of consciousness, urinary or bowel incontinence or tongue bite. Denies any history of seizure or strokes. Acute encephalopathy unsure if it is solely due to drug use. Rule out other processes such as seizure Free of DVT x 3 on Eliquis History of kidney transplant on tacrolimus and mycophenolate Hypertension and known hx of it. Plan: I ordered the MRI of the brain without and routine EEG Primary team ordered 2D echo Also primary team ordered urine drug screen which I agree with. B12, folate hemoglobin A1c is ordered and is pending Will defer the rest of the medical management to primary and other specialist. Plan discussed with the patient, her nurse and the primary team nurse practitioner Thank you for the consultation Time with Patient: Greater than 30
[2024-07-14] MEDS: MAGNESIUM SULFATE-D5W PMX 1 GM in DEXTROSE/WATER 1 100ML.BAG IVPB SCH (15:17)
[2024-07-14 16:11] LABS: Amphetamine Screen,Urine Not Detected (NotDetected); Barbiturate Screen,Urine Not Detected (NotDetected); Benzodiazepines Screen,Urine Detected (NotDetected); Cocaine Screen,Urine Not Detected (NotDetected); Methadone Screen, Urine Not Detected (NotDetected); Opiate Screen,Urine Not Detected (NotDetected); Oxycodone Screen, Urine Not Detected (NotDetected); Phencyclidine Screen,Urine Not Detected (NotDetected); Tricyclic Antidepressant,Urine Not Detected (NotDetected); Urn Cannabinoid Scrn Not Detected (NotDetected)
--- NOTE | 2024-07-14 17:17 | CA ---
Transthoracic Echo Report Name: Donya Lancaster Age: 44 Gender: F : 1980 Exam Date: 07/14/2024 14:26 Exam Location: [facility] Echo Ht (in): 61 Wt (lb): 182 Ordering Physician: Hanh Newsome Attending/Referring Phys: Jerod WOODY Autism Tutor Missy Taylor, BEN Procedure CPT: Indications: tia Cardiac Hx: Technical Quality: Good Contrast 1: Total Dose (mL): Contrast 2: Total Dose (mL): MEASUREMENTS (Male / Female) Normal Values 2D ECHO LV Diastolic Diameter PLAX 4.5 cm 4.2 - 5.9 / 3.9 - 5.3 cm LV Systolic Diameter PLAX 3.0 cm IVS Diastolic Thickness 1.0 cm 0.6 - 1.0 / 0.6 - 0.9 cm LVPW Diastolic Thickness 0.9 cm 0.6 - 1.0 / 0.6 - 0.9 cm LV Relative Wall Thickness 0.4 RV Internal Dim ED PLAX 2.8 cm LA Systolic Diameter LX 3.5 cm 3.0 - 4.0 / 2.7 - 3.8 cm LV Diastolic Volume MOD 4C 74.5 cm??? LV Systolic Volume MOD 4C 32.5 cm??? LV Ejection Fraction MOD 4C 56.3 % LV Cardiac Index MOD 4C 1746.2 cm???/min???m??? LV Diastolic Length 4C 7.2 cm LV Systolic Length 4C 5.9 cm LV Diastolic Volume MOD 2C 83.4 cm??? LV Systolic Volume MOD 2C 39.3 cm??? LV Ejection Fraction MOD 2C 52.9 % LV Cardiac Index MOD 2C 1834.7 cm???/min???m??? LV Diastolic Length 2C 8.4 cm LV Systolic Length 2C 7.0 cm LA Volume 42.8 cm??? 18 - 58 / 22 - 52 cm??? LA Volume Index 22.3 cm???/m??? 16 - 28 cm???/m??? M-MODE Aortic Root Diameter MM 3.0 cm AV Cusp Separation MM 1.9 cm DOPPLER AV Peak Velocity 115.5 cm/s AV Peak Gradient 5.3 mmHg MV Area PHT 5.5 cm??? Mitral E Point Velocity 82.6 cm/s Mitral A Point Velocity 85.3 cm/s Mitral E to A Ratio 1.0 MV Deceleration Time 137.7 ms TR Peak Velocity 237.1 cm/s TR Peak Gradient 22.5 mmHg Right Ventricular Systolic Press 27.5 mmHg FINDINGS Left Ventricle Left ventricular ejection fraction is estimated at 55-60 %. Left ventricular cavity size normal. Left ventricular wall thickness normal. Normal left ventricular wall motion. Right Ventricle Normal right ventricular size and function. Right ventricular systolic pressure within normal limits. Right Atrium Normal right atrial size. No right atrial thrombus or mass seen. Left Atrium Normal left atrial size. No left atrial thrombus or mass present. Mitral Valve Structurally normal mitral valve. No mitral stenosis, regurgitation or prolapse. Aortic Valve Trileaflet aortic valve. No aortic valve stenosis or regurgitation. Tricuspid Valve Structurally normal tricuspid valve. Mild tricuspid regurgitation. Pulmonic Valve Structurally normal pulmonic valve. Trace pulmonic regurgitation. Pericardium No pericardial or pleural effusion. Aorta Normal size aortic root and proximal ascending aorta. CONCLUSIONS Normal left ventricular size and systolic function Consider transesophageal echo to definitively rule out cardiac source for thromboembolic CVA Previewed by: Dr. Rubén Andres MD (Electronically Signed) Final Date: 14 July 2024 17:16
--- NOTE | 2024-07-14 19:04 | MR ---
EXAMINATION TYPE: MR brain wo con DATE OF EXAM: 07/14/2024 COMPARISON: CT brain 07/14/2024 HISTORY: Confusion, paresthesia. CONTRAST: Performed utilizing 0 mL intravenous Gadavist gadolinium contrast. TECHNIQUE: Multiplanar, multiecho imaging on a 3.0 Meme magnet is performed through the brain. Stud y is performed within 24 hours of arrival to the hospital. The craniovertebral junction is normal. The pituitary is normal. Diffusion-weighted imaging is performed. No abnormal hyperintensity is present to suggest an acute i ntracranial infarct or acute ischemic change. There are scattered punctate areas of hyperintensity on T2 and Inversion Recovery weighted sequences which are non-specific but can be related to microvascular ischemic changes. Ventricles and sulci are appropriate for the patient age. IMPRESSION: 1. No acute intracranial process radiographically apparent.
[2024-07-14] MEDS: APIXABAN 2.5 MG TABLET PO SCH (20:44)
[2024-07-14] MEDS: ATORVASTATIN 20 MG TAB PO SCH (20:45)
[2024-07-15] MEDS: LORazepam 2 MG/ML INJ IV PRN (01:04)
[2024-07-15 08:43] LABS: Basophils # (A) 0.02 X 10*3/uL (0.00-0.10); Basophils % (A) 0.4 %; Eosinophils # (A) 0.12 X 10*3/uL (0.04-0.35); Eosinophils % (A) 2.1 %; HCT 36.8 % (37.2-46.3); HGB 11.7 g/dL (12.0-15.0); Lymphocytes # (A) 1.36 X 10*3/uL (0.90-5.00); Lymphocytes % (A) 23.8 %; MCH 28.3 pg (27.0-32.0); MCHC 31.8 g/dL (32.0-37.0); MCV 89.1 FL (80.0-97.0); Mean Platelet Volume 12.5 FL (9.5-12.2); Monocytes # (A) 0.58 X 10*3/uL (0.20-1.00); Monocytes % (A) 10.2 %; NRBC Per 100 WBC 0 X 10*3/uL (0.00-0.01); Neutrophils # (A) 3.61 X 10*3/uL (1.80-7.70); Neutrophils % (A) 63.1 %; Platelet Count 151 X 10*3/uL (140-440); RBC 4.13 X 10*6/uL (4.10-5.20); RDW 12.8 % (11.5-14.5); WBC 5.71 X 10*3/uL (4.50-10.00)
[2024-07-15 09:16] LABS: ALT 11 U/L (8-44); AST 14 U/L (13-35); Albumin 3.8 g/dL (3.8-4.9); Albumin/Globulin Ratio 1.73 Ratio (1.60-3.17); Alkaline Phosphatase 64 U/L (41-126); BUN/Creat Ratio 8.83 Ratio (12.00-20.00); Blood Urea Nitrogen 10.6 mg/dL (9.0-27.0); Calcium 8.4 mg/dL (8.7-10.3); Carbon Dioxide 20.1 mmol/L (21.6-31.8); Chloride 108 mmol/L (96-109); Chol/HDL Ratio 4.55 Ratio; Globulin 2.2 g/dL (1.6-3.3); Glucose 114 mg/dL (70-110); LDL Cholesterol,Calculated 84.8 mg/dL (0.0-131.0); Magnesium 2.1 mg/dL (1.5-2.4); Phosphorus 3.5 mg/dL (2.4-5.1); Potassium 4.1 mmol/L (3.5-5.5); Sodium 139 mmol/L (135-145); Total Bilirubin 0.3 mg/dL (0.3-1.2)
--- NOTE | 2024-07-15 15:22 | P.PN ---
Subjective Progress Note Date: 07/15/24 This is a pleasant 44-year-old female with medical history of hypertension, DVT x 3 anticoagulated on Eliquis, kidney transplant. 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 She is denying any numbness or tingling in the left arm however she was very anxious that she has had 2 episodes and came in for further evaluation. Patient is found to have high blood pressure 160s over 120s on admission she was not having any shortness of breath chest palpitations dizziness lightheadedness or headache. She is not having any focal neurological deficits at this time. Patient does report smoking a marijuana joint the evening before the first episode happened. She denies any other recreational drug use. Is anticoagulated on Eliquis 2.5 mg twice a day follows with Dr. Molina for history of multiple DVTs. Patient's initial brain CT reveals no acute hemorrhage, hydrocephalus or mass effect. EKG reveals sinus rhythm with a heart rate of [address] or T wave abnormalities. Admission patient's BUN is 13 with a creatinine of 1.26, glucose of 130s her CBC is unremarkable. Troponin level is negative x 3. Her TSH is 1.650. A urine drug toxicology was not completed on admission. Neurology was also consulted patient is scheduled to for echocardiogram, EEG and MRI to undergo a full stroke workup. 07/15/2024 Patient has reported overnight around midnight an episode of twitching in the hand and feeling similar to what she was experiencing at home where she feels awake but not aware of what is happening. EEG reports are pending. Neurology recommending to start Keppra. Sodium 139, potassium 4.1. BUN 10.6, creatinine 1.2. Magnesium 2.1. Triglycerides of 169, cholesterol 152, LDL 84, HDL 33. Folate level is 33.10, vitamin B12 of 302 TSH is 1.650. Urine drug toxicology shows benzodiazepines however does not show any marijuana. REVIEW OF SYSTEMS: CONSTITUTIONAL: No fever, no malaise, no fatigue. HEENT: No recent visual problems or hearing problems. Denied any sore throat. CARDIOVASCULAR: No chest pain, orthopnea, PND, no palpitations, no syncope. PULMONARY: No shortness of breath, no cough, no hemoptysis. GASTROINTESTINAL: No diarrhea, no nausea, no vomiting, no abdominal pain. NEUROLOGICAL: No headaches, no weakness, no numbness. GENERAL: The patient is alert and oriented x3, not in any acute distress. Well developed, well nourished. HEENT: Pupils are round and equally reacting to light. EOMI. No scleral icterus. No conjunctival pallor. Normocephalic, atraumatic. No pharyngeal erythema. No thyromegaly. CARDIOVASCULAR: S1 and S2 present. No murmurs, rubs, or gallops. PULMONARY: Chest is clear to auscultation, no wheezing or crackles. ABDOMEN: Soft, nontender, nondistended, normoactive bowel sounds. No palpable organomegaly. MUSCULOSKELETAL: No joint swelling or deformity. EXTREMITIES: No cyanosis, clubbing, or pedal edema. NEUROLOGICAL: Gross neurological examination did not reveal any focal deficits. SKIN: No rashes. Assessment and plan Paresthesias rule out TIA versus stroke neurology on consult patient is scheduled to undergo echocardiogram EEG and MRI. Could also be from the Scout use. Left-sided chest pain,atypical with negative troponins likely due to the hypertension and anxiety and admission Un-Controlled hypertension on admission patient is maintained on lisinopril and metoprolol outpatient which have been resumed, blood pressure now controlled. History of kidney transplant maintained on mycophenolate and tacrolimus Hyperlipidemia maintained on atorvastatin which has been resumed History of DVT anticoagulated with Eliquis maintenance which has been resumed. Reported history of a clotting disorder per patient she follows with Dr. Molina patient is unclear what the name of the clotting disorder is Hypomagnesemia Marijuana use Prophylaxis DVT prophylaxis Full code Plan Continue all same home medications Stroke workup has been ordered. Echo and MRI reviewed. MRI with no evidence of acute stroke. EEG pending, neurology recommending to start Keppra. Neurology consultation Pending Lipid panel, hemoglobin A1C Continue normal saline Replace magnesium The impression and plan of care has been dictated by Hanh Newsome, Nurse Practitioner as directed. Dr. Henrry MD I have performed a history and physical examination and medical decision making of this patient, discussed the same with the dictator, and agree with the dictators assessment and plan as written, documented as a scribe. Based on total visit time, I have performed more than 50% of this visit. Objective - Vital Signs Vital signs: Vital Signs Temp 98.0 F 07/15/24 07:35 Pulse 81 07/15/24 07:35 Resp 16 07/15/24 07:35 BP 128/85 07/15/24 07:35 Pulse Ox 100 07/15/24 07:35 FiO2 Intake & Output 07/14/24 07/15/24 07/15/24 18:59 06:59 18:59 Intake Total 118 350 Balance 118 350 Weight 82.554 kg Intake: Oral 118 350 Other: Voiding Method Toilet Toilet # Voids 2 - Labs CBC & Chem 7: 07/15/24 02:31 07/15/24 02:31 Labs: Abnormal Lab Results - Last 24 Hours (Table) 07/14/24 07/14/24 07/15/24 Range/Units 10:39 15:00 02:31 Hgb 11.7 L (12.0-15.0) g/dL Hct 36.8 L (37.2-46.3) % MCHC 31.8 L (32.0-37.0) g/dL MPV 12.5 H (9.5-12.2) FL Carbon Dioxide (21.6-31.8) mmol/L Est GFR (CKD-EPI) (>=60) BUN/Creatinine Ratio (12.00-20.00) Ratio Glucose (70-110) mg/dL Calcium (8.7-10.3) mg/dL Total Protein (6.2-8.2) g/dL Triglycerides (0.00-149.00) mg/dL HDL Cholesterol (40.00-60.00) mg/dL Folate 33.10 H (4.40-31.00) ng/mL U Benzodiazepines Scrn Detected H (NotDetected) 07/15/24 Range/Units 02:31 Hgb (12.0-15.0) g/dL Hct (37.2-46.3) % MCHC (32.0-37.0) g/dL MPV (9.5-12.2) FL Carbon Dioxide 20.1 L (21.6-31.8) mmol/L Est GFR (CKD-EPI) 58 L (>=60) BUN/Creatinine Ratio 8.83 L (12.00-20.00) Ratio Glucose 114 H (70-110) mg/dL Calcium 8.4 L (8.7-10.3) mg/dL Total Protein 6.0 L (6.2-8.2) g/dL Triglycerides 169.00 H (0.00-149.00) mg/dL HDL Cholesterol 33.40 L (40.00-60.00) mg/dL Folate (4.40-31.00) ng/mL U Benzodiazepines Scrn (NotDetected) Assessment and Plan Time with Patient: Less than 30
--- NOTE | 2024-07-15 15:45 | P.PN ---
Subjective Progress Note Date: 07/15/24 I am following-up with patient and she is accompanied with her . Patient stated overnight she had episode she felt off and notified the nurse. Then had sensation of twitching of upper and lower extremities but had no jerking of extremities and felt off. She denies loss of consciousness, urinary, bowel incontinence or tongue bite. She could not tell me exactly how long it lasted but feels currently back to baseline. Objective - Vital Signs Vital signs: Vital Signs Temp 98.2 F 07/15/24 13:35 Pulse 81 07/15/24 13:35 Resp 16 07/15/24 13:35 BP 139/90 07/15/24 13:35 Pulse Ox 99 07/15/24 13:35 FiO2 Intake & Output 07/14/24 07/15/24 07/15/24 18:59 06:59 18:59 Intake Total 118 590 Balance 118 590 Weight 82.554 kg Intake: Oral 118 590 Other: Voiding Method Toilet Toilet # Voids 2 2 - Exam GENERAL: The patient is lying in bed and is not in acute distress. HENT: Supple neck. NEUROLOGICAL: Higher mental function: The patient is awake, alert, oriented to self, place and time. Patient is following commands. No aphasia and no neglect. Cranial nerves: The pupils are round, equal and reactive to light and accommodation. Visual abbott are full to confrontation throughout. Extraocular movement is intact no nystagmus is noted. Facial sensation is normal to touch throughout. The facial strength is normal throughout. Hearing is normal bilaterally to hand rub. Tongue is midline and moved [id number] without any difficulty. No dysarthria is noted. Shoulder shrug is normal bilaterally. Motor: The strength is 5 over 5 throughout. Normal tone and bulk. Cerebellum: Normal finger to nose heel to goncalves bilaterally. Sensation: Sensation is normal to touch throughout. Reflexes (right/left): 2+ throughout. Plantars are downgoing bilaterally. Some of the workup during this hospital visit consisted of: CBC with differential is unremarkable Chemistry panel is glucose is 130 on presentation. Creatinine is 1.26 and repeat is 1.12. TSH is 1.650 Sodium, AST ALT, calcium are within normal limits Vitamin B12: 302 Folate: 33.1 HbA1c: 5.7 UDS: +ve benzo. Otherwise rest are not detected. CT head is reported as no acute hemorrhage, hydrocephalus or mass effect. I personally reviewed the CT and agree with the report. MRI Brain: No acute intracranial process radiographically apparent. 2D echo: Normal Left ventricular size and systolic function. - Labs CBC & Chem 7: 07/15/24 02:31 07/15/24 02:31 Labs: Abnormal Lab Results - Last 24 Hours (Table) 07/14/24 07/14/24 07/15/24 Range/Units 10:39 15:00 02:31 Hgb 11.7 L (12.0-15.0) g/dL Hct 36.8 L (37.2-46.3) % MCHC 31.8 L (32.0-37.0) g/dL MPV 12.5 H (9.5-12.2) FL Carbon Dioxide (21.6-31.8) mmol/L Est GFR (CKD-EPI) (>=60) BUN/Creatinine Ratio (12.00-20.00) Ratio Glucose (70-110) mg/dL Calcium (8.7-10.3) mg/dL Total Protein (6.2-8.2) g/dL Triglycerides (0.00-149.00) mg/dL HDL Cholesterol (40.00-60.00) mg/dL Folate 33.10 H (4.40-31.00) ng/mL U Benzodiazepines Scrn Detected H (NotDetected) 07/15/24 Range/Units 02:31 Hgb (12.0-15.0) g/dL Hct (37.2-46.3) % MCHC (32.0-37.0) g/dL MPV (9.5-12.2) FL Carbon Dioxide 20.1 L (21.6-31.8) mmol/L Est GFR (CKD-EPI) 58 L (>=60) BUN/Creatinine Ratio 8.83 L (12.00-20.00) Ratio Glucose 114 H (70-110) mg/dL Calcium 8.4 L (8.7-10.3) mg/dL Total Protein 6.0 L (6.2-8.2) g/dL Triglycerides 169.00 H (0.00-149.00) mg/dL HDL Cholesterol 33.40 L (40.00-60.00) mg/dL Folate (4.40-31.00) ng/mL U Benzodiazepines Scrn (NotDetected) Assessment and Plan Assessment: This is a 44-year-old woman who present emergency department because of confusion feeling she is having sensation of muscle waves with abnormal twitching of her muscle movement. She stated it started after she smoked a joint with her friend and she has not done so in 20 years. She denies loss of consciousness, urinary or bowel incontinence or tongue bite. Denies any history of seizure or strokes. Acute encephalopathy unsure if it is solely due to drug use (she states she smoked Marijuana recently but her UDS was negative so unsure what she smoked). She feels she continues to have abnormal twitching sensation of extremities. I doubt seizure. MRI Brain is unremarkable. Low normal vitamin B12 (302) Free of DVT x 3 on Eliquis History of kidney transplant on tacrolimus and mycophenolate Hypertension and known hx of it. Plan: Routine EEG Preliminary: No seizure. Because of her continued episodes of body twitching and concern for ? seizure, she was in agreement of starting Keppra 500mg bid and will access if any improvement. Recommend a repeat EEG and if continues to have symptoms prolonged EEG as outpatient and if negative for seizure and discharge, discontinue Keppra. Because of ?seizure-like activity per [place] DMV, avoid driving for 6 month until seizure free, avoid heights, avoid swimming unassisted or using heavy machinery. Because of her low normal vitamin B12, I started her on Vitamin B12 supplement 1000mcg daily Will defer the rest of the medical management to primary and other specialist. Patient was counseled on avoiding any drug use. Recommend the patient to follow-up with neurologist as outpatient within 2 weeks. Plan discussed with the patient, who is at bedside and the primary team nurse practitioner If by tomorrow, no further neurological issues, then she is clear from neur ological perspective Time with Patient: Less than 30
[2024-07-15] MEDS: CYANOCOBALAMIN 500 MCG TAB PO SCH (16:14)
[2024-07-15] MEDS: levETIRAcetam 500 MG TAB PO SCH (16:38)
--- NOTE | 2024-07-15 20:37 | EEG ---
ELECTROENCEPHALOGRAM REPORT CLINICAL HISTORY: This is a 44-year-old woman who is having recurrent episodes of body twitching and confusion. The video EEG is obtained to evaluate for seizure epileptiform activity. RELEVANT MEDICATIONS: Ativan. EEG TYPE: This is a routine 21-channel EEG with video using the 10/20 electrode placement system. DESCRIPTION: Wakefulness is only obtained. During awake state, the background is somewhat hard to assess because of diffuse excessive beta activity, but there appears low voltage of 9 to 10 hertz activity. There is no physiological stage 2 sleep architecture. There is no focal slowing. There is diffuse excessive beta activity. Interictal and ictal are none. ACTIVATION PROCEDURE: Photic stimulation did evoke a posterior driving response at multiple flash frequencies. There is no abnormality during the photic stimulation. Hyperventilation is not performed. CLINICAL INTERPRETATION: This is a normal routine EEG. There is no focal slowing, epileptiform discharges or seizure on the EEG. The diffuse excessive beta activity is likely due to medication effect (Ativan). Clinical correlation is recommended. YANNICK / YARITZAN: [id number] /
[2024-07-16 02:43] VITALS: RESP 15
[2024-07-16] MEDS: ACETAMINOPHEN TAB 325 MG TAB PO PRN (06:17)
[2024-07-16 08:00] VITALS: BP 107/60; PULSE 74; TEMP 97.9
--- NOTE | 2024-07-16 15:59 | P.PN ---
Subjective Progress Note Date: 07/16/24 I am following up with the patient and she stated that she had an episode overnight in which she felt that she had abnormal sensation and woke up around probably 4 AM and she stated that the nurse calmed her down out of the situation. She denies losing consciousness. She was anxious during the episode. She refused to be on Keppra. She does not feel these episodes are seizure. Objective - Vital Signs Vital signs: Vital Signs Temp 97.9 F 07/16/24 07:00 Pulse 74 07/16/24 07:00 Resp 15 07/16/24 15:24 BP 107/60 07/16/24 07:00 Pulse Ox 99 07/16/24 07:00 FiO2 Intake & Output 07/15/24 07/16/24 07/16/24 18:59 06:59 18:59 Intake Total 708 200 120 Balance 708 200 120 Intake: Oral 708 200 120 Other: Voiding Method Toilet Toilet Toilet # Voids 2 2 - Exam GENERAL: The patient is lying in bed and is not in acute distress. HENT: Supple neck. NEUROLOGICAL: Higher mental function: The patient is awake, alert, oriented to self, place and time. Patient is following commands. No aphasia and no neglect. Cranial nerves: The pupils are round, equal and reactive to light and accommodation. Visual abbott are full to confrontation throughout. Extraocular movement is intact no nystagmus is noted. Facial sensation is normal to touch throughout. The facial strength is normal throughout. Hearing is normal bilaterally to hand rub. Tongue is midline and moved [id number] without any difficulty. No dysarthria is noted. Shoulder shrug is normal bilaterally. Motor: The strength is 5 over 5 throughout. Normal tone and bulk. Cerebellum: Normal finger to nose heel to goncalves bilaterally. Sensation: Sensation is normal to touch throughout. Reflexes (right/left): 2+ throughout. Plantars are downgoing bilaterally. Some of the workup during this hospital visit consisted of: CBC with differential is unremarkable Chemistry panel is glucose is 130 on presentation. Creatinine is 1.26 and repeat is 1.12. TSH is 1.650 Sodium, AST ALT, calcium are within normal limits Vitamin B12: 302 Folate: 33.1 HbA1c: 5.7 UDS: +ve benzo. Otherwise rest are not detected. CT head is reported as no acute hemorrhage, hydrocephalus or mass effect. I personally reviewed the CT and agree with the report. MRI Brain: No acute intracranial process radiographically apparent. 2D echo: Normal Left ventricular size and systolic function. Routine EEG: Normal. The background is normal. There is no focal slowing, epileptiform discharge or seizure on the EEG. The diffuse excessive beta activity is likely due to medication effect (Ativan). - Labs CBC & Chem 7: 07/15/24 02:31 07/15/24 02:31 Assessment and Plan Assessment: This is a 44-year-old woman who present emergency department because of confusion feeling she is having sensation of muscle waves with abnormal twitching of her muscle movement. She stated it started after she smoked a joint with her friend and she has not done so in 20 years. She denies loss of consciousness, urinary or bowel incontinence or tongue bite. Denies any history of seizure or strokes. Acute encephalopathy unsure if it is solely due to drug use (she states she smoked Marijuana recently but her UDS was negative so unsure what she smoked). She feels she continues to have abnormal twitching sensation of extremities. Ro utine EEG is normal. I doubt seizure MRI Brain is unremarkable. Low normal vitamin B12 (302) Free of DVT x 3 on Eliquis History of kidney transplant on tacrolimus and mycophenolate Hypertension and known hx of it. Plan: Because of her continued episodes of body twitching and concern for ? seizure but she refused to take Keppra or be started on antiseizure medication. Recommend a prolonged EEG as outpatient and possible prolonged to capture her episodes. Recommend a repeat EEG and if continues to have symptoms prolonged EEG as outpatient and if negative for seizure and discharge, discontinue Keppra. Because of her low normal vitamin B12, I started her on Vitamin B12 supplement 1000mcg daily Will defer the rest of the medical management to primary and other specialist. Patient was counseled on avoiding any drug use. Recommend the patient to follow-up with neurologist as outpatient within 2 weeks. Plan discussed with the patient nurse. There is no further neurological work-up. Will sign off. Please reconsult if needed. Time with Patient: Less than 30
--- NOTE | 2024-07-16 17:17 | P.DS ---
Providers Date of admission: 07/14/24 04:57 Expected date of discharge: 07/16/24 Attending physician: Griffin Verma Consults: 07/14/24 04:57 Consult Physician Routine Consulting Provider: Venkata Guevara Consult Reason/Comments: paresthesia Do you want consulting provider notified?: Yes Primary care physician: Froy [facility] Hospital Course: This is a pleasant 44-year-old female with medical history of hypertension, DVT x 3 anticoagulated on Eliquis, kidney transplant. 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 She is denying any numbness or tingling in the left arm however she was very anxious that she has had 2 episodes and came in for further evaluation. Patient is found to have high blood pressure 160s over 120s on admission she was not having any shortness of breath chest palpitations dizziness lightheadedness or headache. She is not having any focal neurological deficits at this time. Patient does report smoking a marijuana joint the evening before the first episode happened. She denies any other recreational drug use. Is anticoagulated on Eliquis 2.5 mg twice a day follows with Dr. Molina for history of multiple DVTs. Patient's initial brain CT reveals no acute hemorrhage, hydrocephalus or mass effect. EKG reveals sinus rhythm with a heart rate of [address] or T wave abnormal ities. Admission patient's BUN is 13 with a creatinine of 1.26, glucose of 130s her CBC is unremarkable. Troponin level is negative x 3. Her TSH is 1.650. A urine drug toxicology was not completed on admission. Neurology was also consulted patient is scheduled to for echocardiogram, EEG and MRI to undergo a full stroke workup. 07/15/2024 Patient has reported overnight around midnight an episode of twitching in the hand and feeling similar to what she was experiencing at home where she feels awake but not aware of what is happening. EEG reports are pending. Neurology recommending to start Keppra. Sodium 139, potassium 4.1. BUN 10.6, creatinine 1.2. Magnesium 2.1. Triglycerides of 169, cholesterol 152, LDL 84, HDL 33. Folate level is 33.10, vitamin B12 of 302 TSH is 1.650. Urine drug toxicology shows benzodiazepines however does not show any marijuana. July 16, 2024: Patient presents with episodes where she feels her muscles are twitching. Goes from head to toe. Sometimes in the face. Patient is EEG came back unremarkable. She did not want to take the Keppra. That was discouraged by Dr. Guevara. Has a history of kidney transplant follows at [facility]. [facility] and is at bedside. During discussion it was discovered that patient does not sleep too well. Often times in sleep at anywhere from 10:00 at night to 5 in the morning often playing on games on a screen. Also reads a book late at night. I did discuss this could be simply muscle fatigue and sleep deprivation that is precipitating her symptoms. Also follow-up with electrolytes as an outpatient. Lifestyle changes discussed with the patient . Questions answered. She will follow-up with her transplant physician. Patient had taken marijuana very recently about 3 deep puffs. Patient states she is of happy disposition and [id number],. Patient was advised about mindfulness and advised about use of lexi for the same Discussion and discharge planning more than 35 minutes On examination: VITAL SIGNS: [7.9, 74, 15, 107/60, 99% room air] GENERAL APPEARANCE: BMI 34.4, sitting up in bed crosslegged comfortable. HEENT: Normal external appearance of nose and ear. Oral cavity normal EYES: Pupils equal. Conjunctiva normal. NECK: JVD not raised. Mass not palpable. RESPIRATORY: Respiratory effort normal. Lungs clear to auscultation. CARDIOVASCULAR: First and second sounds normal. No edema. ABDOMEN: Soft. Liver and spleen not palpable. No tenderness. No mass palpable. PSYCHIATRY: Alert and oriented x3. Mood and affect normal. INVESTIGATIONS, reviewed in the clinical context: July 15: White count 5.7 hemoglobin 11.7 platelets 151 potassium 4.1 BUN 10.6 creatinine 1.2 LDL 84 B12 302 folate 33.1 TSH 1.6 Urine drug screen: Detected for benzodiazepine 2D echo: EF 55 to 60%. Assessment and plan: -Scattered muscle fasciculation possibly from muscle fatigue from sleep deprivation. EEG, MRI brain, CT brain: Negative Seen by neurology, Dr. GUEVARA . -Left-sided chest pain,atypical with negative troponins Likely due to the hypertension and anxiety -Essential hypertension lisinopril and metoprolol . -Kidney transplant maintained on mycophenolate and tacrolimus Follows at [facility] -Hyperlipidemia maintained on atorvastatin which has been resumed Chronic DVT anticoagulated with Eliquis maintenance . -Chronic clotting disorder per patient she follows with Dr. Molina patient is unclear what the name of the clotting disorder is Hypomagnesemia Marijuana use Full code Disposition: Home Plan - Discharge Summary New Discharge Prescriptions: New Cyanocobalamin [Vitamin B-12] 1,000 mcg PO MOWEFR #30 tab Continue Metoprolol Succinate (ER) [Toprol XL] 25 mg PO BID Omeprazole [PriLOSEC] 20 mg PO AC-BRKFST Tacrolimus [Prograf] 0.5 mg PO HS Atorvastatin [Lipitor] 20 mg PO HS Vitamin D3 (Unknown Dose) 4,000 unit PO DAILY Magnesium 100 mg PO DAILY lisinopriL [Zestril] 5 mg PO DAILY Tacrolimus [Prograf] 1 mg PO Q12H Mycophenolate Sodium [Mycophenolic Acid] 360 mg PO Q12H Apixaban [Eliquis] 2.5 mg PO BID Folic Acid 1 mg PO DAILY Discharge Medication List Apixaban [Eliquis] 2.5 mg PO BID 07/14/24 [History] Atorvastatin [Lipitor] 20 mg PO HS 07/14/24 [History] Folic Acid 1 mg PO DAILY 07/14/24 [History] Magnesium 100 mg PO DAILY 07/14/24 [History] Metoprolol Succinate (ER) [Toprol XL] 25 mg PO BID 07/14/24 [History] Mycophenolate Sodium [Mycophenolic Acid] 360 mg PO Q12H 07/14/24 [History] Omeprazole [PriLOSEC] 20 mg PO AC-BRKFST 07/14/24 [History] Tacrolimus [Prograf] 0.5 mg PO HS 07/14/24 [History] Tacrolimus [Prograf] 1 mg PO Q12H 07/14/24 [History] Vitamin D3 (Unknown Dose) 4,000 unit PO DAILY 07/14/24 [History] lisinopriL [Zestril] 5 mg PO DAILY 07/14/24 [History] Cyanocobalamin [Vitamin B-12] 1,000 mcg PO MOWEFR #30 tab 09/11/24 [Rx] Follow up Appointment(s)/Referral(s): Froy Barron MD [Primary Care Provider] - 1-2 days Patient Instructions/Handouts: Generalized Anxiety Disorder (ED), Paresthesia (ED), Paresthesia (GEN) Activity/Diet/Wound Care/Special Instructions: FOLLOW UP DIRECTED, SOONER FOR WORSENING SYMPTOMS, PROBLEMS, OR CONCERNS. Discharge/Stand Alone Forms: Community Resources, Outpatient Counseling Discharge Disposition: HOME SELF-CARE
== END 2024-07-16 15:25 | disposition home or self-care (01) ==
LOC: EC 02:46 → 6NMEDSUR 04:57
PROVIDERS: ADMIT Hospitalist; ATTEND Hospitalist
DX: G93.40 Encephalopathy, unspecified (principal); R20.2 Paresthesia of skin; R07.89 Other chest pain; R00.0 Tachycardia, unspecified; I10 Essential (primary) hypertension; F41.9 Anxiety disorder, unspecified; E83.42 Hypomagnesemia; F12.90 Cannabis use, unspecified, uncomplicated; E78.5 Hyperlipidemia, unspecified; D68.9 Coagulation defect, unspecified; Z86.718 Personal history of other venous thrombosis and embolism; Z94.0 Kidney transplant status; Z79.01 Long term (current) use of anticoagulants; Z79.899 Other long term (current) drug therapy; Z88.5 Allergy status to narcotic agent
CPT/HCPCS: 36415; 70450; 70551; 80048; 80053; 80061; 80306; 82550; 82607; 82746; 83036; 83735; 84100; 84443; 84484; 85025; 85610; 85730; 93005; 93306; 95816; 96361; 96365; 96366; 96375; 96376; 99285

== ENCOUNTER → 2025-02-20 | Outpatient (CLI) | payer BC ==
--- NOTE | 2025-02-24 12:26 | MM ---
Reason for Exam: Screening (asymptomatic). Last mammogram was performed 2 year(s) and 2 month(s) ago. Patient History: Menarche at age 17. Patient has no children. Premenopausal. Hormonal Contraceptives, from age 17 until age 22. Risk Values: Carmen 5 year model risk: 0.7%. NCI Lifetime model risk: 9.9%. Prior Study Comparison: 11/09/2020 Left Diagnostic Mammogram, [facility]. 06/24/2021 Left Diagnostic Mammogram, [facility]. 12/26/2022 Bilateral MG 3D screening mammo w/cad, [facility]. Tissue Density: The breasts are heterogeneously dense, which may obscure small masses. Findings: Analyzed By CAD. There is no suspicious group of microcalcifications or new suspicious mass in either breast. Overall Assessment: Benign, BI-RAD 2 Management: Screening Mammogram of both breasts in 1 year. . Patient should continue monthly self-breast exams. A clinical breast exam by your physician is recommended on an annual basis. This exam should not preclude additional follow-up of suspicious palpable abnormalities. Note on Carmen scores and lifetime risk: 1. A Carmen score greater than 3% is considered moderate risk. If this is the case, consider specialist referral to assess eligibility for a risk reducing agent. 2. If overall lifetime risk for the development of breast cancer is 20% or higher, the patient may qualify for future screening with alternating mammogram and breast MRI. [facility], , 02/20/2025 1:15 PM. Electronically signed and approved by: Devante Moore M.D. Radiologis
== END | disposition home or self-care (01) ==
LOC: RADMAMWWP 12:51
PROVIDERS: ATTEND Pediatrics
DX: Z12.31 Encounter for screening mammogram for malignant neoplasm of breast (principal); R92.333 Mammographic heterogeneous density, bilateral breasts; Z92.0 Personal history of contraception
CPT/HCPCS: 77063; 77067